=== PATIENT | female | born 1945 | race Caucasian/White ===

== ENCOUNTER 2019-09-04 09:01 | Inpatient (IN) | payer MEDICARE, OTHER ==
[2019-08-27 16:58] LABS: BASOPHILS % (AUTO) 0.5 % (0-1); EOSINOPHILS # (AUTO) 0.2 X10'3 (0-0.9); EOSINOPHILS % (AUTO) 2.2 % (0-6); LYMPHOCYTES % (AUTO) 38.1 % (21-51); MEAN CORPUSCULAR HEMOGLOBIN 31.7 PG (27.0-31.0); MEAN CORPUSCULAR HGB CONC 33.9 g/dL (33.0-36.5); MEAN CORPUSCULAR VOLUME 93.4 FL (78-98); MEAN PLATELET VOLUME 9.8 FL (7.4-10.4); MONOCYTES # (AUTO) 0.5 X10'3 (0-0.9); MONOCYTES % (AUTO) 6.4 % (2-12); NEUTROPHILS # (AUTO) 4.1 X10'3 (1.8-7.7); NEUTROPHILS % (AUTO) 52.8 % (42-75); PRE OP HEMATOCRIT 39.6 % (35.0-45.0); PRE OP HEMOGLOBIN 13.5 g/dL (12.0-16.0); PRE OP PLATELET COUNT 225 X10'3 (140-440); RED BLOOD COUNT 4.25 X10'6 (4.20-5.60); RED CELL DISTRIBUTION WIDTH 14.2 % (11.5-14.5)
[2019-08-27 17:05] LABS: HEMOGLOBIN A1C 5.4 % (4.5-6.2)
[2019-08-27 17:09] LABS: PRE OP PROTIME 10.3 SECONDS (9.0-12.0)
[2019-08-27 17:12] LABS: ALBUMIN 3.9 G/DL (3.4-5.0); ALBUMIN/GLOBULIN RATIO 0.9 (1.1-1.5); ALKALINE PHOSPHATASE 94 IU/L (46-116); BLOOD UREA NITROGEN 14 MG/DL (7-18); BUN/CREATININE RATIO 17.5 (6.6-38.0); CHLORIDE 104 MMOL/L (99-107); PRE OP ALT 24 U/L (30-65); PRE OP ANION GAP 7 (8-16); PRE OP AST 21 U/L (10-37); PRE OP BILIRUB, TOTAL 0.3 MG/DL (0.0-1.0); PRE OP GLUCOSE 78 MG/DL (70-104); PRE OP POTASSIUM 3.6 MMOL/L (3.4-5.1); PRE OP SODIUM 140 MMOL/L (135-145); TOTAL CARBON DIOXIDE 29.4 MMOL/L (24-32); TOTAL PROTEIN 8.1 G/DL (6.4-8.2); eGFR 71 ML/MIN
[~2019-09-04] VITALS: Ht 165.1 cm; Wt 83.0 kg
[2019-09-04] VITALS (16 sets, daily range): BP systolic 102–136; BP diastolic 55–84
[~2019-09-04 09:01] MED LIST: ASPI-611 PO; BIOSIL; CITA40TA11 PO; LEVO50TA PO; METF-436 PO; NAPR-1115 PO; OSC500T PO; SIMV20TA PO; cefazolin/dext.iso 2gm/50ml 50 ML IV ONE; famotidine 20mg tablet PO ONE; ringers solution, lacted 1,000 ML IV SCH; tranexamic acid inj. 1,000 MG in normal saline 100 ML IV ONE; vancomycin inj 1,500 MG in normal saline 300ml IV soln IV ONE
[2019-09-04] MEDS ORDERED: ringers solution, lacted 1,000 ML IV SCH (09:08)
[2019-09-04] MEDS ORDERED: meperidine/PF 25mg/ml syringe IV PRN ×3 (09:10)
[2019-09-04] MEDS ORDERED: morphine 4 MG/ML inj SYRINge IV PRN ×2 (09:10)
[2019-09-04] MEDS ORDERED: ondansetron/PF 4mg/2ml inj IV PRN ×3 (09:10→14:35)
[2019-09-04] MEDS ORDERED: proCHLORperazine 10 MG/2 ml inj IV PRN (09:10)
[2019-09-04] MEDS ORDERED: LIDOcaine 1% (10mg/ml) 2ml vial ONE (09:25)
[2019-09-04] MEDS ORDERED: vancomycin 1,000mg inj ONE (10:34)
[2019-09-04] MEDS ORDERED: ceFAZolin 1000mg inj ONE (10:34)
[2019-09-04] MEDS ORDERED: fentaNYL/PF 50MCG/1 ML 2ML syringe ONE (12:10)
[2019-09-04] MEDS ORDERED: MIDAZolam 1mg/ml 10ml vial ONE (12:10)
[2019-09-04] MEDS ORDERED: morphine /PF 1mg/ml 10ml inj. ONE (12:10)
[2019-09-04] MEDS ORDERED: BUPIVAcaine/PF 7.5mg/ml (0.75%) 10ml vial ONE (12:16)
[2019-09-04] MEDS ORDERED: diphenhydrAMINE 50 mg/ml inj IV PRN (13:00)
[2019-09-04] MEDS ORDERED: naloxone 2mg/2ml inj 1.6 MG in normal saline 500ml IV soln 500 ML IV PRN (13:00)
[2019-09-04] MEDS ORDERED: calcium chloride 100 MG/1 ML inj IV ONE (14:03)
[2019-09-04] MEDS ORDERED: Thrombin (Bovine) 5,000 unit vial TP ONE (14:30)
[2019-09-04] MEDS ORDERED: HYDROmorphone inj. 0.5 MG/0.5 ML DISP.SYRIN IV PRN (14:35)
[2019-09-04] MEDS ORDERED: oxyCODONE IR 5mg (immed. release) tablet PO PRN (14:35)
[2019-09-04] MEDS ORDERED: diphenhydrAMINE 25mg capsule PO PRN ×2 (14:35)
[2019-09-04] MEDS ORDERED: magnesium hydroxide 30ml (MOM) UD suspension PO PRN (14:35)
[2019-09-04] MEDS ORDERED: acetaminophen 325mg tablet PO PRN (14:35)
[2019-09-04] MEDS ORDERED: HYDROmorphone 1 mg/ml syringe IV PRN (14:35)
[2019-09-04] MEDS ORDERED: bisacodyl 10mg suppository rectal RC PRN (14:35)
--- NOTE | 2019-09-04 14:39 | NUR ---
Received from OR via [facility] WITH [facility] , accompanied by Anesthesiologist ROBINSON and report given by Anesthesiolgist. VSS. DENIES PAIN, ABLE TO PUMP BOTH ANKLES. +CAP REFILL TO LEFT FOOT. LEFT HIP WRAP/ POWDER PACK AND CHIDI DRAIN. PATIENT WITH 18G PIV IN EACH UE. LR RUNNING AT 100 VIA 18G PIV IN RIGHT.SCDS BILATERALLY. DENIES PAIN. Addendum: 09/04/19 at 1509 by Marvin Hoover - ZACHARY SHARMA Amended: Links added.
--- NOTE | 2019-09-04 15:49 | NUR ---
ALL CRITERIA FOR TRANSFER TO THE FLOOR HAS BEEN ACHIEVED. DENIES PAIN. PATIENT VSS. DRESSING TO LEFT HIP IS CDI. ZACHARY BAILEY PRESENT TO ACCEPT CARE. POSITIONED TO COMFORT. ABDUCTION WEDGE IN PLACE AND SCDS ON. BED LOW, CALL LIGHT PRESENT. ONE BAG OF BELONGINGS SENT WITH PATIENT. SPOUSE AT BEDSIDE AWAITING. Addendum: 09/04/19 at 1602 by Marvin Doan RN, RN Amended: Links added.
[2019-09-04] MEDS ORDERED: insulin Lispro (HumaLOG) vial - multi-dose SQ SCH (17:10)
[2019-09-04] MEDS ORDERED: glucagon, human recombinant 1mg kit SUBCUT PRN (17:10)
[2019-09-04] MEDS ORDERED: MESSAGE TO PHARMACY PO ONE (17:10)
[2019-09-04] MEDS ORDERED: dextrose ORAL solution 15 GM/59 ML bottle PO PRN ×2 (17:10)
[2019-09-04] MEDS ORDERED: dextrose 50%-water 50ml dispensing syringe IV PRN ×2 (17:10)
[2019-09-04] MEDS: ceFAZolin 1GM/D5W- ADD-VANTAGE 50 ML IV SCH (17:12)
[2019-09-04] MEDS: potassium cl 20mEq in 1/2 NS 1,000 ML IV SCH (17:13)
[2019-09-04] MEDS ORDERED: tranexamic acid inj. 1,000 MG in normal saline 100ml IV soln 100 ML IV ONE (17:35)
--- NOTE | 2019-09-04 18:16 | NUR ---
Student documentation: I have reviewed and agree with all interventions, assessments performed and documented by Aimee POND . Student Medication Administration: For this medication-pass time frame, all medication were reviewed, dispensed, administered and documented per hospital policy by Aimee POND. Report to Gabby SHARMA
[2019-09-04] MEDS ORDERED: vancomycin/NS 1 GM ADD-VANTAGE 250 ML IV SCH (20:00)
[2019-09-04] MEDS: metFORMIN 500mg tablet PO SCH (20:00)
[2019-09-04] MEDS: insulin glargine (Lantus) pen - multi-dose SQ SCH (21:00)
[2019-09-04] MEDS: calcium carbonate 500mg tablet PO SCH (21:00)
[2019-09-04] MEDS: atorvastatin 10mg tablet PO SCH (21:01)
[2019-09-04] MEDS: acetaminophen 325mg tablet PO SCH (21:01)
[2019-09-04] MEDS: gabapentin 300mg capsule PO SCH (21:02)
[2019-09-04] MEDS: sennosides 8.6mg tablet PO SCH (21:03)
[2019-09-05] MEDS: ceFAZolin 1GM/D5W- ADD-VANTAGE 50 ML IV SCH (00:26)
[2019-09-05] MEDS: acetaminophen 325mg tablet PO SCH ×4 (01:58→21:42)
[2019-09-05 02:12] VITALS: BP 97/51
[2019-09-05] MEDS: oxyCODONE IR 5mg (immed. release) tablet PO PRN ×4 (05:34→21:43)
[2019-09-05 06:10] VITALS: BP_SYST 47; BP_SYST 99; BP_DIAS 47; BP_DIAS 51
--- NOTE | 2019-09-05 06:14 | NUR ---
Problems reprioritized. Patient report given, questions answered & plan of care reviewed with ZACHARY ARAIZA.
--- NOTE | 2019-09-05 06:16 | NUR ---
Patient in room ORTHO 4010. I have received report from Gabby SHARMA and had the opportunity to ask questions and assume patient care.
[2019-09-05 06:17] LABS: BASOPHILS % (AUTO) 0.5 % (0-1); EOSINOPHILS % (AUTO) 0.8 % (0-6); HEMATOCRIT 29.2 % (35.0-45.0); HEMOGLOBIN 10.2 g/dl (12.0-16.0); LYMPHOCYTES % (AUTO) 29.9 % (21-51); MEAN CORPUSCULAR HEMOGLOBIN 32.4 PG (27.0-31.0); MEAN CORPUSCULAR VOLUME 92.5 FL (78-98); MEAN PLATELET VOLUME 9.9 FL (7.4-10.4); MONOCYTES # (AUTO) 0.6 X10'3 (0-0.9); MONOCYTES % (AUTO) 8.7 % (2-12); NEUTROPHILS # (AUTO) 3.9 X10'3 (1.8-7.7); NEUTROPHILS % (AUTO) 60.1 % (42-75); PLATELET COUNT 146 X10'3 (140-440); RED BLOOD COUNT 3.15 X10'6 (4.20-5.60); RED CELL DISTRIBUTION WIDTH 13.8 % (11.5-14.5); WHITE BLOOD COUNT 6.5 X10'3 (4.5-11.0)
[2019-09-05 06:33] LABS: ANION GAP 5 (8-16); CHLORIDE 106 MMOL/L (99-107); POTASSIUM 3.8 MMOL/L (3.5-5.1); SODIUM 138 MMOL/L (135-145); TOTAL CARBON DIOXIDE 26.7 MMOL/L (24-32)
[2019-09-05] MEDS: levoTHYROXINE 25mcg tablet PO SCH (08:00)
[2019-09-05] MEDS: metFORMIN 500mg tablet PO SCH ×2 (09:04→21:43)
[2019-09-05] MEDS: gabapentin 300mg capsule PO SCH ×3 (09:05→21:43)
[2019-09-05] MEDS: calcium carbonate 500mg tablet PO SCH ×2 (09:05→21:42)
[2019-09-05] MEDS: citalopram 20mg tablet PO SCH (09:05)
[2019-09-05] MEDS: enoxaparin 30mg/0.3ml syringe SQ SCH (09:07)
[2019-09-05 10:00] VITALS: BP 107/49
--- NOTE | 2019-09-05 12:16 | NUR ---
Joint replacement consult: Pt PO 50-75% meals good given age. LBM 09/03. Pt/SO seen by ARETHA for written/verbal high protein ed w/ RD contact information provided. Pt declines additional proteins at this time; reports has premier protein and MVI at home. Addendum: 09/05/19 at [address] Amended: Links added.
[2019-09-05] MEDS ORDERED: WALKERFR (12:52)
[2019-09-05] MEDS: potassium cl 20mEq in 1/2 NS 1,000 ML IV SCH ×3 (13:13→22:32)
[2019-09-05 14:00] VITALS: BP 116/46
[2019-09-05 18:00] VITALS: BP 140/86
--- NOTE | 2019-09-05 18:30 | NUR ---
Patient report given to Charla SHARMA
[2019-09-05] MEDS: insulin glargine (Lantus) pen - multi-dose SQ SCH (21:00)
[2019-09-05] MEDS: atorvastatin 10mg tablet PO SCH (21:42)
[2019-09-05] MEDS: sennosides 8.6mg tablet PO SCH (21:43)
[2019-09-05] MEDS: celeCOXIB 100mg capsule PO SCH (21:43)
[2019-09-05 22:00] VITALS: BP 135/58
[2019-09-06] MEDS: potassium cl 20mEq in 1/2 NS 1,000 ML IV SCH ×2 (01:49→06:32)
[2019-09-06] MEDS: acetaminophen 325mg tablet PO SCH ×3 (02:00→14:00)
[2019-09-06 05:18] LABS: BASOPHILS % (AUTO) 0.3 % (0-1); EOSINOPHILS # (AUTO) 0.1 X10'3 (0-0.9); EOSINOPHILS % (AUTO) 1.2 % (0-6); HEMATOCRIT 28.8 % (35.0-45.0); LYMPHOCYTES % (AUTO) 24.7 % (21-51); MEAN CORPUSCULAR HEMOGLOBIN 32.3 PG (27.0-31.0); MEAN CORPUSCULAR HGB CONC 34.6 g/dL (33.0-36.5); MEAN CORPUSCULAR VOLUME 93.3 FL (78-98); MEAN PLATELET VOLUME 9.5 FL (7.4-10.4); MONOCYTES # (AUTO) 0.7 X10'3 (0-0.9); MONOCYTES % (AUTO) 8.4 % (2-12); NEUTROPHILS # (AUTO) 5.3 X10'3 (1.8-7.7); NEUTROPHILS % (AUTO) 65.4 % (42-75); PLATELET COUNT 134 X10'3 (140-440); RED BLOOD COUNT 3.09 X10'6 (4.20-5.60); RED CELL DISTRIBUTION WIDTH 13.7 % (11.5-14.5); WHITE BLOOD COUNT 8.1 X10'3 (4.5-11.0)
[2019-09-06 06:00] VITALS: BP 104/53
--- NOTE | 2019-09-06 06:43 | NUR ---
reported to days. noted pt anticipates discharge this am.
[2019-09-06] MEDS: citalopram 20mg tablet PO SCH (07:51)
[2019-09-06] MEDS: celeCOXIB 100mg capsule PO SCH (07:51)
[2019-09-06] MEDS: calcium carbonate 500mg tablet PO SCH (07:52)
[2019-09-06] MEDS: metFORMIN 500mg tablet PO SCH (07:52)
[2019-09-06] MEDS: gabapentin 300mg capsule PO SCH ×2 (07:52→13:00)
[2019-09-06] MEDS: levoTHYROXINE 25mcg tablet PO SCH (07:52)
[2019-09-06] MEDS: enoxaparin 30mg/0.3ml syringe SQ SCH (07:53)
[2019-09-06 10:00] VITALS: BP 103/42
[2019-09-06] MEDS ORDERED: acetaminophen 325mg tablet PO PRN (14:35)
== END 2019-09-06 14:30 | disposition home health service (06) | DRG 470 ==
LOC: PAS IN 09:01 → EDSTATUS 12:00 → ORTHO 4S 16:00
PROVIDERS: ADMIT Orthopaedic Surgery; ATTEND Orthopaedic Surgery
PROC: 0SRB06A Replacement of Left Hip Joint with Oxidized Zirconium on Polyethylene Synthetic Substitute, Uncemented, Open Approach (ICD-10-PCS; principal; 2019-09-04 12:11)
DX: M16.12 Unilateral primary osteoarthritis, left hip (principal); D62 Acute posthemorrhagic anemia; G56.01 Carpal tunnel syndrome, right upper limb; F32.9 Major depressive disorder, single episode, unspecified; E11.9 Type 2 diabetes mellitus without complications; E03.9 Hypothyroidism, unspecified; E78.5 Hyperlipidemia, unspecified; Z87.891 Personal history of nicotine dependence
CPT/HCPCS: 36415; 73502; 80051; 80053; 82948; 83036; 85025; 85610; 85730; 86885; 86900; 86901; 87081; 97110; 97112; 97116; 97161; 97530; A4215; A4618; A6258; A6449; A7000; C1758; C1776; G0378; J0690; J1650; J1815; J2001; J2250; J2270; J3010; J3370; J3480; J3490; J7120

== ENCOUNTER 2022-09-08 09:09 | Emergency (ER) | payer MEDICARE, OTHER ==
[~2022-09-08] VITALS: Ht 165.1 cm; Wt 73.0 kg
[~2022-09-08 09:09] MED LIST changes: -BIOSIL; -CITA40TA11 PO; +CITA40TA32 PO; +SIMV-342 PO; -SIMV20TA PO; +WALKERFR; -cefazolin/dext.iso 2gm/50ml 50 ML IV ONE; -famotidine 20mg tablet PO ONE; -ringers solution, lacted 1,000 ML IV SCH; -tranexamic acid inj. 1,000 MG in normal saline 100 ML IV ONE; -vancomycin inj 1,500 MG in normal saline 300ml IV soln IV ONE
[2022-09-08 09:14] VITALS: BP 133/69
--- NOTE | 2022-09-08 10:28 | NUR ---
PT REFUSED BOOT, LYN WRAP, AND CRUTCHES
== END 2022-09-08 10:34 | disposition home or self-care (01) ==
LOC: ER 09:10
DX: S93.402A Sprain of unspecified ligament of left ankle, initial encounter (principal); M19.90 Unspecified osteoarthritis, unspecified site; W19.XXXA Unspecified fall, initial encounter; Y93.89 Activity, other specified; Y92.89 Other specified places as the place of occurrence of the external cause; Y99.8 Other external cause status
CPT/HCPCS: 73610; 99284; A6449; L4360